=== PATIENT | female | born 1995 | race Caucasian/White ===

== ENCOUNTER 2018-03-26 12:59 | Emergency (ER) | payer MEDICAID, OTHER ==
[2018-03-26 12:59] VITALS: BMI 24.3
[2018-03-26 13:27] VITALS: RESP 18; TEMP 98.3; O2SAT 100
--- NOTE | 2018-03-26 14:34 | ED PDOC ---
Arrival/HPI - General Chief Complaint: Eye Problem Time Seen by Provider: 03/26/18 13:08 Historian: Patient - History of Present Illness Narrative History of Present Illness (Text): 03/26/18 14:48 22yr old female presents today with b/l dry eyes with tearing, occasional frontal headache. pt denies nasal congestion, no uri symptoms. no sore throat. no fever/chills. pt denies any trauma or injury. pt states for the past week her eyes have been itchy, dry and tearing. pt states she has noticed occasional blurred vision. pt states she has been using antibiotic eye drops that she got from a family friend without improvement. pt denies chest pain or shortness of breath. no neck or back pain. no medications taken at home for headache. Past Medical History - Provider Review Nursing Documentation Reviewed: Yes - Travel History Have you recently traveled outside [place] w/in the past 3 mons?: No - Past History Past History: No Previous - Infectious Disease Hx of Infectious Diseases: None - Tetanus Immunization Tetanus Immunization: Unknown - Past Medical History Past Medical History: No Previous - Cardiac Hx Cardiac Disorders: No Hx Hypertension: No - Pulmonary Hx Tuberculosis: No - Neurological HX Cerebrovascular Accident: No Hx Seizures: No - Hematological/Oncological Hx Cancer: No - Genitourinary/Gynecological Hx Sexually Transmitted Diseases: No - Psychiatric Hx Substance Use: No - Past Surgical History Past Surgical History: No Previous - Anesthesia Hx Anesthesia: No Hx Anesthesia Reactions: No Hx Malignant Hyperthermia: No - Suicidal Assessment Feels Threatened In Home Enviroment: No Family/Social History - Physician Review Nursing Documentation Reviewed: Yes Family/Social History: Unknown Family HX Smoking Status: Never Smoked Hx Alcohol Use: No Hx Substance Use: No Hx Substance Use Treatment: No Allergies/Home Meds Allergies/Adverse Reactions: Allergies No Known Allergies Allergy (Verified 10/21/15 04:26) Home Medications: Home Meds Medication Instructions Recorded Confirmed No Known Home Med 07/15/14 10/21/15 Review of Systems - Review of Systems Constitutional: absent: Fatigue, Fevers Eyes: Vision Changes, Eye Pain. absent: Photophobia ENT: absent: Sore Throat, Epistaxis, Sinus Congestion Respiratory: absent: SOB, Cough Cardiovascular: absent: Chest Pain, Palpitations Gastrointestinal: absent: Abdominal Pain, Nausea, Vomiting Genitourinary Female: absent: Dysuria, Frequency Musculoskeletal: absent: Arthralgias, Back Pain, Neck Pain Skin: absent: Rash, Pruritis Neurological: Headache. absent: Dizziness Psychiatric: absent: Anxiety, Depression Physical Exam Vital Signs Reviewed: Yes Vital Signs Temp Pulse Resp BP Pulse Ox 03/26/18 12:59 98.3 F 70 18 121/80 100 Temperature: Afebrile Blood Pressure: Normal Pulse: Regular Respiratory Rate: Normal Appearance: Positive for: Well-Appearing, Non-Toxic, Comfortable Pain Distress: None Mental Status: Positive for: Alert and Oriented X 3 - Systems Exam Head: Present: Atraumatic. No: Tenderness, Contusion, Swelling, Ecchymosis, Abrasion Pupils: Present: PERRL Extroacular Muscles: Present: EOMI. No: Gaze Palsy, Entrapment Conjunctiva: Present: Normal, Other (no hyphema, no corneal abrasion or ulceration. pressure in right eye; 17 pressure in left eye 15). No: Injected Ears: Present: Normal, NORMAL TM Mouth: Present: Moist Mucous Membranes Pharnyx: Present: Normal Nose (External): Present: Atraumatic Neck: Present: Normal Range of Motion Respiratory/Chest: Present: Clear to Auscultation, Good Air Exchange. No: Respiratory Distress, Accessory Muscle Use Cardiovascular: Present: Regular Rate and Rhythm, Normal S1, S2. No: Murmurs Neurological: Present: GCS=15, Speech Normal Medical Decision Making ED Course and Treatment: 03/26/18 15:00 Patient is nontoxic well appearing in no distress Visual acuity within normal limits 20/20 right eye 20/20 left eye 20/15 both eyes. NO Conjunctival injection noted, PERRLA, extraocular muscles intact. normal pressures. no ulceration or abrasion. pt was advised to follow up with eye doctor and return if symptoms worsen,persist or if new symptoms develop. Patient verbalizes understanding of discharge instructions and need for immediate followup. all aspects of this case were discussed the attending of record. Impression: eye irritation Followup with the eye doctor within the next 2 days Return immediately if symptoms worsen persist or if new symptoms develop; blurry vision, worsening eye pain, worsening redness or any other concerning symptoms develop. Follow up with her primary care physician within the next 2 days - Medication Orders Current Medication Orders: Acetaminophen (Tylenol 325mg Tab) 975 mg PO STAT STA Stop: 03/26/18 14:24 Disposition/Present on Arrival - Present on Arrival Any Indicators Present on Arrival: No History of DVT/PE: No History of Uncontrolled Diabetes: No Urinary Catheter: No History of Decub. Ulcer: No History Surgical Site Infection Following: None - Disposition Have Diagnosis and Disposition been Completed?: Yes Diagnosis: Eye irritation Disposition: HOME/ ROUTINE Disposition Time: 14:27 Patient Plan: Discharge Condition: GOOD Additional Instructions: Followup with the eye doctor within the next 2 days Return immediately if symptoms worsen persist or if new symptoms develop; blurry vision, worsening eye pain, worsening redness or any other concerning symptoms develop. Follow up with her primary care physician within the next 2 days Referrals: Brock Chatman MD [Staff Provider] - Follow up with primary Mary Ellen Koroma MD [Medical Doctor] - Follow up with primary [facility] [Outside] - Follow up with primary
[2018-03-26 17:24] VITALS: BP 124/75; PULSE 71
== END 2018-03-26 15:00 | disposition home or self-care (01) ==
LOC: ED 12:59
DX: H57.89 Other specified disorders of eye and adnexa (principal)